=== PATIENT | female | born 1965 | race Two or more races ===

== ENCOUNTER 2018-06-18 17:30 | Emergency (ER) | payer MEDICARE, MEDICAID ==
[~2018-06-18] VITALS: Ht 167.6 cm; Wt 78.6 kg
[2018-06-18] MEDS ORDERED: HYDROmorphone 1 MG/ML, 1ML IM STA (18:00)
[2018-06-18] MEDS ORDERED: HYDROmorphone 2 MG/ML, 1ML ONE (18:05)
[2018-06-18 18:43] LABS: BASOPHILS # (AUTO) 0.03 x10^3/uL (0-0.1); BASOPHILS % (AUTO) 0 % (0-1); EOSINOPHILS # (AUTO) 0.25 x10^3/uL (0-0.4); EOSINOPHILS % (AUTO) 4 % (1-7); LYMPHOCYTES # (AUTO) 2.98 x10^3/uL (1-3.4); LYMPHOCYTES % (AUTO) 44 % (22-44); MD NO; MEAN CORPUSCULAR HGB CONC 33.8 g/dL (32.4-35.8); MEAN CORPUSCULAR VOLUME 94.6 fL (80-100); MEAN PLATELET VOLUME 8.5 fL (7.4-10.4); MONOCYTES # (AUTO) 0.68 x10^3/uL (0.2-0.8); MONOCYTES % (AUTO) 10 % (2-9); NEUTROPHILS # (AUTO) 2.84 x10^3/uL (1.8-6.8); NEUTROPHILS % (AUTO) 42 % (42-75); PLATELET COUNT 359 x10^3/uL (130-400); RED BLOOD COUNT 4.32 x10^6/uL (3.82-5.3); RED CELL DISTRIBUTION WIDTH 13.1 % (9.6-15.2)
[2018-06-18 18:49] LABS: ALBUMIN 4.2 g/dL (3.4-5.0); ANION GAP 7 mmol/L (5-15); CALCIUM 8.7 mg/dL (8.5-10.1); CHLORIDE 111 mmol/L (98-107); CREATININE 0.68 mg/dL (0.55-1.02)
[2018-06-18 19:36] VITALS: BP 107/83
== END 2018-06-18 19:38 | disposition home or self-care (01) ==
LOC: ED 19:25
DX: G89.11 Acute pain due to trauma (principal); M79.671 Pain in right foot
CPT/HCPCS: 36415; 73630; 80048; 82040; 85025; 96372; 99285; J1170

== ENCOUNTER 2018-12-26 12:37 | Emergency (ER) | payer MEDICARE, MEDICAID ==
[~2018-12-26] VITALS: Ht 170.2 cm; Wt 82.6 kg
[2018-12-26 12:49] VITALS: BP 122/85
[2018-12-26] MEDS ORDERED: CARBAMIDE PEROXIDE EAR DROPS 6.5%, 15ML ONE (13:08)
--- NOTE | 2018-12-26 13:10 | NUR ---
MEDICATED LEFT EAR PER ORDERS, PT TO X RAY
[2018-12-26] MEDS ORDERED: CARBAMIDE PEROXIDE EAR DROPS 6.5%, 15ML LEFT EAR ONE (13:30)
--- NOTE | 2018-12-26 14:29 | NUR ---
LAVAGE MULTIPLE TIMES, LEFT EAR GETTING LARGE AMOUNT OF EAR WAX
--- NOTE | 2018-12-26 15:29 | NUR ---
Patient/Caregiver given discharge instructions and they have confirmed that they understand the instructions. Patient ambulatory with steady gait.
== END 2018-12-26 15:30 | disposition home or self-care (01) ==
LOC: ED 15:24
DX: J01.10 Acute frontal sinusitis, unspecified (principal); H61.22 Impacted cerumen, left ear
CPT/HCPCS: 71046; 99283

== ENCOUNTER 2019-01-04 18:26 | Emergency (ER) | payer MEDICARE, MEDICAID ==
[~2019-01-04] VITALS: Ht 167.6 cm; Wt 83.5 kg
--- NOTE | 2019-01-04 19:00 | NUR ---
PT WITH MILDLY INCREASED WOB, SPEAKING IN FULL SENTENCES SPO2 >90% ON RA. NON-PRODUCTIVE COUGH X THREE WEEKS +SOB. MONITORS APPLIED, SIDERAILS UP X2, CALL LIGHT WITHIN REACH
[2019-01-04] MEDS ORDERED: NEBULIZER (19:03)
[2019-01-04] MEDS ORDERED: ASPI-515 PO (19:03)
--- NOTE | 2019-01-04 19:41 | NUR ---
PT RESTING CALMLY, MONITORS IN PLACE, CALL LIGHT WITHIN REACH, PROVIDED PT WITH WARM BLANKETS, AWAITING XRAY RESULT
[2019-01-04 19:43] LABS: BASOPHILS # (AUTO) 0.02 x10^3/uL (0-0.1); BASOPHILS % (AUTO) 0 % (0-1); EOSINOPHILS # (AUTO) 0.24 x10^3/uL (0-0.4); EOSINOPHILS % (AUTO) 3 % (1-7); LYMPHOCYTES # (AUTO) 2.74 x10^3/uL (1-3.4); LYMPHOCYTES % (AUTO) 37 % (22-44); MD NO; MEAN CORPUSCULAR HEMOGLOBIN 32.1 pg (27.0-34.8); MEAN CORPUSCULAR HGB CONC 34.2 g/dL (32.4-35.8); MEAN CORPUSCULAR VOLUME 93.9 fL (80-100); MEAN PLATELET VOLUME 8.4 fL (7.4-10.4); MONOCYTES # (AUTO) 0.67 x10^3/uL (0.2-0.8); MONOCYTES % (AUTO) 9 % (2-9); NEUTROPHILS # (AUTO) 3.67 x10^3/uL (1.8-6.8); NEUTROPHILS % (AUTO) 50 % (42-75); PLATELET COUNT 323 x10^3/uL (130-400); RED BLOOD COUNT 4.13 x10^6/uL (3.82-5.3); RED CELL DISTRIBUTION WIDTH 13.3 % (9.6-15.2)
[2019-01-04 19:50] LABS: ALBUMIN 3.8 g/dL (3.4-5.0); ANION GAP 4 mmol/L (5-15); CALCIUM 8.7 mg/dL (8.5-10.1); CHLORIDE 113 mmol/L (98-107); CREATININE 0.89 mg/dL (0.55-1.02)
[2019-01-04 20:31] VITALS: BP 112/76
--- NOTE | 2019-01-04 20:32 | NUR ---
PT SITTING UP ON GURNEY, DENIES NEEDS, MONITORS IN PLACE, CALL LIGHT WITHIN REACH. CHART UP FOR RECHECK
== END 2019-01-04 21:07 | disposition home or self-care (01) ==
LOC: ED 20:30
DX: B34.9 Viral infection, unspecified (principal); Z90.89 Acquired absence of other organs
CPT/HCPCS: 36415; 71046; 80048; 82040; 85025; 93005; 99284

== ENCOUNTER 2019-02-08 10:43 | Emergency (ER) | payer MEDICARE, MEDICAID ==
[~2019-02-08] VITALS: Ht 167.6 cm; Wt 84.1 kg
[~2019-02-08 10:43] MED LIST: ASPI-515 PO; NEBULIZER
--- NOTE | 2019-02-08 11:03 | NUR ---
E LEARNING DEVELOPER: PT TO ROOM FROM [facility] S[facility]
--- NOTE | 2019-02-08 11:07 | NUR ---
53 Y/O FEMALE PRESENTS TO ED WITH C/O CP. "I'M EXPERIENCING A LOT OF PAIN IN MY SHOULDER PAINS. IT'S GOES DOWN MY LEFT ARM. IT STARTED A MONTH AGO. MY DR SAID I HAVE ASTHMA. I FEEL LIKE MY NOSE IS OBSTRUCTED AND I HAVE TO OPEN MY MOUTH TO BREATH. I GET SOB. WHEN I TAKE A DEEP BREATH IT HURTS. IT'S BEEN ALL THE TIME FOR 2 WEEKS." NO C/O N/V/D, TRAUMA, SYNCOPE, DAUGHTER BEDSIDE.
[2019-02-08] MEDS ORDERED: KETOROLAC 30 MG/1 ML ONE (11:22)
--- NOTE | 2019-02-08 11:29 | NUR ---
PT RESTING ON GURNEY. NO ACUT EDISTRESS NOTED. MEDICATION ADMINISTERED PER EMAR. FAMILY BEDSIDE. NO NEEDS REQUESTED AT THIS TIME.
[2019-02-08] MEDS ORDERED: KETOROLAC 30 MG/1 ML IM ONE (11:30)
[2019-02-08 11:47] LABS: BASOPHILS # (AUTO) 0.01 x10^3/uL (0-0.1); BASOPHILS % (AUTO) 0 % (0-1); EOSINOPHILS # (AUTO) 0.13 x10^3/uL (0-0.4); EOSINOPHILS % (AUTO) 2 % (1-7); LYMPHOCYTES # (AUTO) 2.53 x10^3/uL (1-3.4); LYMPHOCYTES % (AUTO) 45 % (22-44); MD NO; MEAN CORPUSCULAR HEMOGLOBIN 31.6 pg (27.0-34.8); MEAN CORPUSCULAR HGB CONC 33.4 g/dL (32.4-35.8); MEAN CORPUSCULAR VOLUME 94.6 fL (80-100); MEAN PLATELET VOLUME 8.5 fL (7.4-10.4); MONOCYTES # (AUTO) 0.56 x10^3/uL (0.2-0.8); MONOCYTES % (AUTO) 10 % (2-9); NEUTROPHILS # (AUTO) 2.43 x10^3/uL (1.8-6.8); NEUTROPHILS % (AUTO) 43 % (42-75); PLATELET COUNT 292 x10^3/uL (130-400); RED CELL DISTRIBUTION WIDTH 13.4 % (9.6-15.2)
[2019-02-08 11:57] LABS: ANION GAP 8 mmol/L (5-15); CHLORIDE 111 mmol/L (98-107)
[2019-02-08 12:03] LABS: ALANINE AMINOTRANSFERASE 21 U/L (12-78); ALKALINE PHOSPHATASE 95 U/L (45-117); CREATININE 0.65 mg/dL (0.55-1.02); TOTAL PROTEIN 7.4 g/dL (6.4-8.2); TROPONIN I < 0.015 ng/mL (0.000-0.045)
[2019-02-08 12:12] LABS: BILIRUBIN,TOTAL 0.5 mg/dL (0.2-1.0)
--- NOTE | 2019-02-08 12:50 | NUR ---
PT RESTING ON GURNEY.NO ACUTE DISTRESS NOTED. PT STATES "I FEEL MUCH BETTER AFTER THE PAIN MEDICATION. I JUST HAVE A LITTLE PAIN. I WONDER IF IT'S MY KYPHOSIS AND STRESS. I DON'T HAVE A DR HERE FOR PAIN MEDS." NO NEEDS REQUESTED AT THIS TIME.
[2019-02-08 12:51] VITALS: BP 119/83
--- NOTE | 2019-02-08 13:41 | NUR ---
Patient/Caregiver given discharge instructions and they have confirmed that they understand the instructions. Patient ambulatory with steady gait. PT LEFT WITH ALL PERSONAL BELONGINGS.
== END 2019-02-08 13:43 | disposition home or self-care (01) ==
LOC: ED 12:00
DX: R07.89 Other chest pain (principal); R06.00 Dyspnea, unspecified
CPT/HCPCS: 36415; 71046; 80053; 83880; 84484; 85025; 93005; 96372; 99284; J1885

== ENCOUNTER 2019-04-02 22:29 | Emergency (ER) | payer MEDICARE, MEDICAID ==
[~2019-04-02] VITALS: Ht 167.6 cm; Wt 84.4 kg
[2019-04-03 02:12] VITALS: BP 107/75
== END 2019-04-03 02:21 | disposition home or self-care (01) ==
LOC: ED 23:02
DX: N34.1 Nonspecific urethritis (principal); R35.0 Frequency of micturition
CPT/HCPCS: 36415; 80053; 81003; 81025; 83690; 85025; 87210; 87491; 87591; 87808; 96372; 99283; J0696

== ENCOUNTER 2019-04-11 06:16 | Emergency (ER) | payer MEDICARE, MEDICAID ==
[~2019-04-11] VITALS: Ht 167.6 cm; Wt 85.1 kg
[2019-04-11 06:18] VITALS: BP 125/88
== END 2019-04-11 10:48 | disposition home or self-care (01) ==
LOC: ED 07:49
DX: N30.01 Acute cystitis with hematuria (principal)
CPT/HCPCS: 36415; 80053; 81001; 81025; 85025; 87086; 99283

== ENCOUNTER 2019-05-14 16:29 | Emergency (ER) | payer MEDICARE, MEDICAID ==
[~2019-05-14] VITALS: Ht 167.6 cm; Wt 83.0 kg
[2019-05-14 17:44] LABS: BASOPHILS # (AUTO) 0.01 x10^3/uL (0-0.1); BASOPHILS % (AUTO) 0 % (0-1); EOSINOPHILS # (AUTO) 0.07 x10^3/uL (0-0.4); EOSINOPHILS % (AUTO) 1 % (1-7); LYMPHOCYTES # (AUTO) 2.11 x10^3/uL (1-3.4); LYMPHOCYTES % (AUTO) 28 % (22-44); MD NO; MEAN CORPUSCULAR HGB CONC 33.7 g/dL (32.4-35.8); MEAN CORPUSCULAR VOLUME 97.8 fL (80-100); MEAN PLATELET VOLUME 8.8 fL (7.4-10.4); MONOCYTES # (AUTO) 0.52 x10^3/uL (0.2-0.8); MONOCYTES % (AUTO) 7 % (2-9); NEUTROPHILS # (AUTO) 4.76 x10^3/uL (1.8-6.8); NEUTROPHILS % (AUTO) 64 % (42-75); PLATELET COUNT 320 x10^3/uL (130-400); RED BLOOD COUNT 4.38 x10^6/uL (3.82-5.3); RED CELL DISTRIBUTION WIDTH 13.7 % (9.6-15.2)
[2019-05-14 17:50] LABS: ALBUMIN 4.6 g/dL (3.4-5.0); ANION GAP 8 mmol/L (5-15); CALCIUM 9.5 mg/dL (8.5-10.1); CHLORIDE 108 mmol/L (98-107); CREATININE 0.95 mg/dL (0.55-1.02)
--- NOTE | 2019-05-14 18:17 | NUR ---
TASK RN: UA SENT FROM TRIAGE
[2019-05-14 18:57] LABS: MICROSCOPIC INDICATED
[2019-05-14 18:58] LABS: CULTURE INDICATED? YES
--- NOTE | 2019-05-14 19:27 | NUR ---
FROM LOBBY TO ROOM AT THIS TIME
--- NOTE | 2019-05-14 19:53 | NUR ---
THIS IS A 53YO FEMALE THAT CAME IN FOR RECURRENT UTI SYMPTOMS. SHE HAS BURING AND PAIN WITH URINATION AND INCREASED FREQUENCY. PT IS SITTING ON [employer] CALL LIGHT IN REACH. PT CONNCECTED TO MONITORS AND VSS.
[2019-05-14 19:54] VITALS: BP 111/81
--- NOTE | 2019-05-14 19:58 | NUR ---
PT AMBULATED TO USE PHONE, STEADY GAIT.
[2019-05-14] MEDS ORDERED: PHENAZOPYRIDINE 200 MG TABLET PO ONE (20:00)
[2019-05-14] MEDS ORDERED: PHENAZOPYRIDINE 200 MG TABLET ONE (20:02)
--- NOTE | 2019-05-14 20:05 | NUR ---
PT MEDICATED PER MAR.
--- NOTE | 2019-05-14 20:11 | NUR ---
ALL RESULTS BACK AT THIS TIME, CHART UP FOR RECHECK. AWAITING FURTHER ORDERS.
--- NOTE | 2019-05-14 20:35 | NUR ---
AWAITING MD RECHECK AND DISPO ORDERS
--- NOTE | 2019-05-14 20:42 | NUR ---
Patient/Caregiver given discharge instructions and they have confirmed that they understand the instructions. Patient ambulatory with steady gait.
[2019-06-04] MEDS ORDERED: CIPR500T87 PO (09:15)
== END 2019-05-14 20:43 | disposition home or self-care (01) ==
LOC: ED 20:37
DX: N39.0 Urinary tract infection, site not specified (principal); R30.0 Dysuria
CPT/HCPCS: 36415; 80048; 81001; 82040; 85025; 87086; 99283

== ENCOUNTER 2019-07-01 20:25 | Emergency (ER) | payer MEDICARE, MEDICAID ==
[~2019-07-01] VITALS: Ht 167.6 cm; Wt 85.6 kg
[~2019-07-01 20:25] MED LIST changes: +CIPR500T87 PO
[2019-07-01 20:27] VITALS: BP 147/82
--- NOTE | 2019-07-01 21:24 | NUR ---
pt called back to room from lobby
[2019-07-01 21:35] LABS: MICROSCOPIC AUTO
[2019-07-01 21:36] LABS: CULTURE INDICATED? YES
[2019-07-01] MEDS ORDERED: CEFTRIAXONE 1,000 MG ONE (21:50)
[2019-07-01] MEDS ORDERED: CEFTRIAXONE 1,000 MG IM ONE (22:00)
[2019-07-01 22:01] LABS: BASOPHILS # (AUTO) 0.03 x10^3/uL (0-0.1); BASOPHILS % (AUTO) 0 % (0-1); EOSINOPHILS # (AUTO) 0.22 x10^3/uL (0-0.4); EOSINOPHILS % (AUTO) 3 % (1-7); LYMPHOCYTES # (AUTO) 3.26 x10^3/uL (1-3.4); LYMPHOCYTES % (AUTO) 46 % (22-44); MD NO; MEAN CORPUSCULAR HEMOGLOBIN 32.6 pg (27.0-34.8); MEAN CORPUSCULAR HGB CONC 33.4 g/dL (32.4-35.8); MEAN CORPUSCULAR VOLUME 97.4 fL (80-100); MEAN PLATELET VOLUME 8.4 fL (7.4-10.4); MONOCYTES # (AUTO) 0.76 x10^3/uL (0.2-0.8); MONOCYTES % (AUTO) 11 % (2-9); NEUTROPHILS # (AUTO) 2.76 x10^3/uL (1.8-6.8); NEUTROPHILS % (AUTO) 39 % (42-75); PLATELET COUNT 290 x10^3/uL (130-400); RED CELL DISTRIBUTION WIDTH 13.6 % (9.6-15.2)
[2019-07-01 22:14] LABS: ALANINE AMINOTRANSFERASE 26 U/L (12-78); ANION GAP 3 mmol/L (5-15); CALCIUM 9.1 mg/dL (8.5-10.1); CHLORIDE 113 mmol/L (98-107); CREATININE 0.76 mg/dL (0.55-1.02)
[2019-07-01 22:16] LABS: ALKALINE PHOSPHATASE 126 U/L (45-117); BILIRUBIN,TOTAL 0.3 mg/dL (0.2-1.0); TOTAL PROTEIN 7.9 g/dL (6.4-8.2)
--- NOTE | 2019-07-01 22:38 | NUR ---
PT D/C WITH D/C SUMMARY AND SCRIPTS. ALL QUESTIONS ANSWERED. PT AMBULATES TO REGISTRATION DESK WITH STEADY GAIT FOR D/C HOME. PT DENIES ANY OTHER NEEDS PERTAINING TO THIS VISIT.
== END 2019-07-01 22:41 | disposition home or self-care (01) ==
LOC: ED 22:07
DX: N39.0 Urinary tract infection, site not specified (principal); Z90.89 Acquired absence of other organs
CPT/HCPCS: 36415; 80053; 81001; 83690; 85025; 87077; 87086; 87186; 96372; 99283; J0696

== ENCOUNTER 2019-08-23 17:33 | Emergency (ER) | payer MEDICARE, MEDICAID ==
[~2019-08-23] VITALS: Ht 167.6 cm; Wt 83.0 kg
--- NOTE | 2019-08-23 17:41 | NUR ---
LIGHTING ENGINEER: THIS RN IN ROOM WHILE EKG WAS PERFORMED WITH TECH. PT TOLERATED WITH NO COMPLICATIONS.
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
[2019-08-23 19:39] LABS: BASOPHILS # (AUTO) 0.02 x10^3/uL (0-0.1); BASOPHILS % (AUTO) 0 % (0-1); EOSINOPHILS # (AUTO) 0.14 x10^3/uL (0-0.4); EOSINOPHILS % (AUTO) 2 % (1-7); LYMPHOCYTES # (AUTO) 3.19 x10^3/uL (1-3.4); LYMPHOCYTES % (AUTO) 47 % (22-44); MD NO; MEAN CORPUSCULAR HEMOGLOBIN 32.4 pg (27.0-34.8); MEAN CORPUSCULAR HGB CONC 33.4 g/dL (32.4-35.8); MEAN CORPUSCULAR VOLUME 97.1 fL (80-100); MEAN PLATELET VOLUME 8.5 fL (7.4-10.4); MONOCYTES % (AUTO) 10 % (2-9); NEUTROPHILS % (AUTO) 40 % (42-75); PLATELET COUNT 307 x10^3/uL (130-400); RED BLOOD COUNT 4.12 x10^6/uL (3.82-5.3); RED CELL DISTRIBUTION WIDTH 13.4 % (9.6-15.2)
[2019-08-23 19:41] LABS: ALANINE AMINOTRANSFERASE 22 U/L (12-78); ANION GAP 5 mmol/L (5-15); CALCIUM 9.2 mg/dL (8.5-10.1); CHLORIDE 110 mmol/L (98-107); CREATININE 0.73 mg/dL (0.55-1.02)
[2019-08-23 19:46] LABS: ALKALINE PHOSPHATASE 111 U/L (45-117); BILIRUBIN,TOTAL 0.3 mg/dL (0.2-1.0); TOTAL PROTEIN 7.4 g/dL (6.4-8.2); TROPONIN I < 0.015 ng/mL (0.000-0.045)
--- NOTE | 2019-08-23 20:08 | NUR ---
Pt AMBULATED TO BATHROOM W STEADY GAIT. NO NEEDS AT THIS [place]. VS STABLE.
[2019-08-23 20:09] VITALS: BP 118/80
--- NOTE | 2019-08-23 20:33 | NUR ---
Patient/Caregiver given discharge instructions and they have confirmed that they understand the instructions. Patient ambulatory with steady gait.
== END 2019-08-23 20:34 | disposition home or self-care (01) ==
LOC: ED 19:10
DX: L20.84 Intrinsic (allergic) eczema (principal); R53.1 Weakness; R51 Headache; Z90.89 Acquired absence of other organs
CPT/HCPCS: 36415; 71045; 80053; 84484; 85025; 93005; 99284

== ENCOUNTER 2020-06-26 20:08 | Emergency (ER) | payer MEDICARE, MEDICAID ==
[~2020-06-26] VITALS: Ht 170.2 cm; Wt 83.1 kg
[2020-06-26 20:12] VITALS: BP 123/83
[2020-06-26] MEDS ORDERED: IBUPROFEN 600 MG TABLET PO ONE (20:30)
[2020-06-26] MEDS ORDERED: IBUPROFEN 600 MG TABLET ONE (20:38)
--- NOTE | 2020-06-26 20:45 | NUR ---
PT MEDICATED PER EMAR. XR COMPLETED AT BS. ICE PACK PLACED. WARM BLANKET PROVIDED, CALL LIGHT WITHIN REACH.
--- NOTE | 2020-06-26 21:38 | NUR ---
Patient/Caregiver given discharge instructions and they have confirmed that they understand the instructions. Patient ambulatory with steady gait.
== END 2020-06-26 21:40 | disposition home or self-care (01) ==
LOC: ED 21:00
DX: M71.21 Synovial cyst of popliteal space [Baker], right knee (principal); M25.561 Pain in right knee; Z90.89 Acquired absence of other organs
CPT/HCPCS: 99283

== ENCOUNTER 2020-07-12 11:26 | Emergency (ER) | payer MEDICARE, MEDICAID ==
[~2020-07-12] VITALS: Ht 170.2 cm; Wt 83.9 kg
[2020-07-12] MEDS ORDERED: ALBUTEROL/IPRATROPIUM 2.5MG/0.5MG, 3 ML NPPB ONE (12:00)
[2020-07-12] MEDS ORDERED: ALBUTEROL/IPRATROPIUM 2.5MG/0.5MG, 3 ML ONE (12:20)
--- NOTE | 2020-07-12 12:26 | NUR ---
ADMINISTERED DUONEB TREATMENT. PATIENT RESTING, CONTINUOUS PSO2, HEART MONITOR AND BP MONITORED
[2020-07-12 13:59] VITALS: BP 107/74
--- NOTE | 2020-07-12 14:00 | NUR ---
PT STATES BREATHING IMPROVED SINCE RECEIVING TX. DISCHARGE GIVEN AND AMBULATED TO DISCHARGE WINDOW STEADY GAIT
== END 2020-07-12 14:02 | disposition home or self-care (01) ==
LOC: ED 13:42
DX: J45.41 Moderate persistent asthma with (acute) exacerbation (principal); R06.00 Dyspnea, unspecified
CPT/HCPCS: 71045; 93005; 94640; 99283

== ENCOUNTER 2020-10-05 20:06 | Emergency (ER) | payer MEDICARE, MEDICAID ==
[~2020-10-05] VITALS: Ht 170.2 cm; Wt 84.5 kg
[~2020-10-05 20:06] MED LIST changes: +ASPI-1024 PO; -ASPI-515 PO
--- NOTE | 2020-10-05 20:30 | NUR ---
Pt ambulating to bathroom- steady, equal gait. UA collected and sent to lab.
[2020-10-05] MEDS ORDERED: SODIUM CHLORIDE FLUSH 10ML SYR IVF ONE (21:00)
[2020-10-05] MEDS ORDERED: SODIUM CHLORIDE 0.9% 1,000ML IVBOLUS ONE (21:00)
--- NOTE | 2020-10-05 21:09 | NUR ---
Pt to XR
--- NOTE | 2020-10-05 21:10 | NUR ---
Pt back from XR
[2020-10-05 21:24] LABS: MICROSCOPIC NOT IND
--- NOTE | 2020-10-05 21:27 | NUR ---
Pt signed records release form to retrieve records from [facility]
--- NOTE | 2020-10-05 21:37 | NUR ---
IV inserted. NS infusing.
[2020-10-05 22:02] LABS: BASOPHILS % (AUTO) 1 % (0-1); EOSINOPHILS % (AUTO) 3 % (1-7); LYMPHOCYTES % (AUTO) 45 % (22-44); MEAN CORPUSCULAR HEMOGLOBIN 32.2 pg (27.0-34.8); MEAN CORPUSCULAR HGB CONC 34.2 g/dL (32.4-35.8); MEAN PLATELET VOLUME 8.5 fL (7.4-10.4); MONOCYTES % (AUTO) 9 % (2-9); NEUTROPHILS % (AUTO) 42 % (42-75); PLATELET COUNT 315 x10^3/uL (130-400); RED BLOOD COUNT 4.15 x10^6/uL (3.82-5.3); RED CELL DISTRIBUTION WIDTH 13.9 % (9.6-15.2)
[2020-10-05 22:09] LABS: ALBUMIN 4.2 g/dL (3.4-5.0); ANION GAP 6 mmol/L (5-15); CALCIUM 9.6 mg/dL (8.5-10.1); CHLORIDE 110 mmol/L (98-107)
--- NOTE | 2020-10-05 22:11 | NUR ---
REPORT FROM ANGÉLICA SANDERS
[2020-10-05 22:13] LABS: ALANINE AMINOTRANSFERASE 27 U/L (12-78); ALKALINE PHOSPHATASE 116 U/L (45-117); BILIRUBIN,TOTAL 0.3 mg/dL (0.2-1.0); CREATININE 0.78 mg/dL (0.55-1.02); TOTAL PROTEIN 7.8 g/dL (6.4-8.2)
--- NOTE | 2020-10-05 22:13 | NUR ---
Report to MARILYN Holden.
--- NOTE | 2020-10-05 22:18 | NUR ---
pt up to bathroom with steady gait
[2020-10-05 22:52] LABS: MD SCAN
[2020-10-05 23:23] VITALS: BP 119/78
== END 2020-10-05 23:25 | disposition home or self-care (01) ==
LOC: ED 23:00
DX: K64.8 Other hemorrhoids (principal); K59.00 Constipation, unspecified; R11.2 Nausea with vomiting, unspecified
CPT/HCPCS: 36415; 74021; 80053; 81003; 85025; 96360; 99284; J7030

== ENCOUNTER → 2020-10-06 | Outpatient (CLI) | payer MEDICARE, MEDICAID ==
[~2020-10-06] MED LIST changes: -ASPI-1024 PO; +ASPI-963 PO
== END | disposition home or self-care (01) ==
LOC: RAD 13:47
PROVIDERS: ATTEND Physical Medicine & Rehabilitation Pain Medicine
DX: M47.24 Other spondylosis with radiculopathy, thoracic region (principal)
CPT/HCPCS: 72072

== ENCOUNTER 2020-11-14 12:36 | Outpatient (CLI) | payer MEDICARE, MEDICAID ==
[2020-11-14 13:01] LABS: BASOPHILS % (AUTO) 0 % (0-1); EOSINOPHILS % (AUTO) 1 % (1-7); LYMPHOCYTES % (AUTO) 45 % (22-44); MEAN CORPUSCULAR HEMOGLOBIN 32.8 pg (27.0-34.8); MEAN CORPUSCULAR HGB CONC 34.5 g/dL (32.4-35.8); MEAN PLATELET VOLUME 8.3 fL (7.4-10.4); MONOCYTES % (AUTO) 10 % (2-9); NEUTROPHILS % (AUTO) 44 % (42-75); PLATELET COUNT 313 x10^3/uL (130-400); RED BLOOD COUNT 4.03 x10^6/uL (3.82-5.3); RED CELL DISTRIBUTION WIDTH 13.3 % (9.6-15.2)
[2020-11-14 13:02] LABS: MD NO
[2020-11-14 13:06] LABS: ALANINE AMINOTRANSFERASE 23 U/L (12-78); ALBUMIN 4.2 g/dL (3.4-5.0); ANION GAP 5 mmol/L (5-15); C-REACTIVE PROTEIN, QUANT 0.07 mg/dL (0.02-0.49); CALCIUM 8.9 mg/dL (8.5-10.1); CHLORIDE 110 mmol/L (98-107)
[2020-11-14 13:08] LABS: ALKALINE PHOSPHATASE 97 U/L (45-117); BILIRUBIN,TOTAL 0.5 mg/dL (0.2-1.0); CREATININE 0.75 mg/dL (0.55-1.02); TOTAL PROTEIN 7.7 g/dL (6.4-8.2)
[2020-11-14 13:48] LABS: HCT (SEDRATE) 38.3 % (34.6-47.8)
== END 2020-11-14 23:59 | disposition home or self-care (01) ==
LOC: LAB 12:36
PROVIDERS: ATTEND Internal Medicine Infectious Disease
DX: R79.82 Elevated C-reactive protein (CRP) (principal); R70.0 Elevated erythrocyte sedimentation rate; B00.89 Other herpesviral infection
CPT/HCPCS: 36415; 80053; 85025; 85651; 86140

== ENCOUNTER → 2020-12-26 | Outpatient (CLI) | payer MEDICARE, MEDICAID | END | disposition home or self-care (01) | LOC: CFH 15:19 | DX: N64.4 Mastodynia (principal) | CPT/HCPCS: 76642; 77062; 77066; G0279 ==

== ENCOUNTER 2021-05-05 08:16 | Emergency (ER) | payer MEDICARE, MEDICAID ==
[~2021-05-05] VITALS: Ht 167.6 cm; Wt 83.6 kg
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
[2021-05-05 09:09] VITALS: BP 123/87
== END 2021-05-05 09:14 | disposition home or self-care (01) ==
LOC: ED 08:46
DX: S00.431A Contusion of right ear, initial encounter (principal); S00.83XA Contusion of other part of head, initial encounter; X58.XXXA Exposure to other specified factors, initial encounter; Y93.89 Activity, other specified; Y92.89 Other specified places as the place of occurrence of the external cause; Y99.8 Other external cause status
CPT/HCPCS: 99283

== ENCOUNTER 2021-05-14 11:43 | Outpatient (CLI) | payer MEDICARE, MEDICAID ==
[2021-05-14 12:12] LABS: HCT (SEDRATE) 39.2 % (34.6-47.8)
[2021-05-14 12:25] LABS: ANION GAP 5 mmol/L (5-15); CALCIUM 9.1 mg/dL (8.5-10.1); CHLORIDE 112 mmol/L (98-107)
[2021-05-14 12:26] LABS: ALANINE AMINOTRANSFERASE 20 U/L (12-78); ALBUMIN 3.8 g/dL (3.4-5.0); C-REACTIVE PROTEIN, QUANT 0.13 mg/dL (0.02-0.49); CREATININE 0.81 mg/dL (0.55-1.02)
[2021-05-14 12:28] LABS: ALKALINE PHOSPHATASE 105 U/L (45-117); BILIRUBIN,TOTAL 0.4 mg/dL (0.2-1.0); TOTAL PROTEIN 7.5 g/dL (6.4-8.2)
[2021-05-14 12:42] LABS: BASOPHILS % (AUTO) 0 % (0-1); EOSINOPHILS % (AUTO) 2 % (1-7); LYMPHOCYTES % (AUTO) 39 % (22-44); MEAN CORPUSCULAR HGB CONC 33.8 g/dL (32.4-35.8); MEAN PLATELET VOLUME 8.4 fL (7.4-10.4); MONOCYTES % (AUTO) 11 % (2-9); NEUTROPHILS % (AUTO) 48 % (42-75); PLATELET COUNT 336 x10^3/uL (130-400); RED BLOOD COUNT 4.11 x10^6/uL (3.82-5.3); RED CELL DISTRIBUTION WIDTH 13.5 % (9.6-15.2)
== END 2021-05-14 23:59 | disposition home or self-care (01) ==
LOC: LAB 11:43
PROVIDERS: ATTEND Internal Medicine Infectious Disease
DX: N39.0 Urinary tract infection, site not specified (principal); R79.82 Elevated C-reactive protein (CRP); R70.0 Elevated erythrocyte sedimentation rate; B00.9 Herpesviral infection, unspecified
CPT/HCPCS: 36415; 80053; 85025; 85651; 86140; 86695; 86696